=== PATIENT | male | born 1960 | race Caucasian/White ===

== ENCOUNTER → 2021-11-23 | Outpatient (CLI) | payer OTHER ==
[~2021-11-23] MED LIST: ASPI81TA86 PO; GING500C2 PO; NEXI40CA PO; ROSU20TA5 PO
== END ==
LOC: M LABSMTC 11:13
PROVIDERS: ATTEND Anesthesiology
DX: Z01.812 Encounter for preprocedural laboratory examination (principal); Z20.822 Contact with and (suspected) exposure to COVID-19

== ENCOUNTER 2021-11-28 07:53 | Day surgery (SDC) | payer OTHER ==
[~2021-11-28] VITALS: Ht 177.8 cm; Wt 78.7 kg
[~2021-11-28 07:53] MED LIST changes: +NS 1,000 ML IV ONE
[2021-11-28] MEDS ORDERED: LIDOCAINE 2% 100MG/5ML SDV (FOR ANES.) As Ordered ONE (09:37)
[2021-11-28] MEDS ORDERED: propofoL 200 MG/20 ML VIAL As Ordered ONE (09:37)
[2021-11-28 10:35] VITALS: BP 116/79
== END 2021-11-28 10:40 | disposition home or self-care (01) ==
LOC: M OPP 07:53
PROVIDERS: ATTEND Surgery
DX: Z12.11 Encounter for screening for malignant neoplasm of colon (principal); D12.5 Benign neoplasm of sigmoid colon; K64.1 Second degree hemorrhoids; K22.89 Other specified disease of esophagus; Z87.19 Personal history of other diseases of the digestive system; Z79.899 Other long term (current) drug therapy; Z80.3 Family history of malignant neoplasm of breast